=== PATIENT | female | born 1975 | race Caucasian/White ===

== ENCOUNTER 2017-04-04 16:27 | Emergency (ER) | payer BC, OTHER ==
[2017-04-04] MEDS ORDERED: KETOROLAC TROMETHAMINE 60 MG/2 ML SDV IM ONE (16:51)
[2017-04-04] MEDS ORDERED: KETOROLAC TROMETHAMINE INJ/PF 30 MG/1 ML SDV IV ONE (16:53)
--- NOTE | 2017-04-04 16:54 | ER Document Report ---
ED Neck/Back Problem - General Chief Complaint: Back Injury Stated Complaint: BACK PAIN Time Seen by Provider: 04/04/17 16:50 Mode of Arrival: Wheelchair TRAVEL OUTSIDE OF THE [place] IN LAST 30 DAYS: No - HPI Patient complains to provider of: Pain, Injury, Lower back Onset: Just prior to arrival - pt fell on muddy patch and injured her middle and lower back. Denies LOC, neck pain - Related Data Allergies/Adverse Reactions: metronidazole [From Flagyl] Allergy (Severe, Verified 04/04/17 16:51) ofloxacin [From Floxin] Allergy (Severe, Verified 04/04/17 16:51) glycopyrrolate [From Robinul] Allergy (Verified 04/04/17 16:51) VOMITING hydromorphone [From Dilaudid] Allergy (Verified 04/04/17 16:51) oxycodone HCl [From Percocet] Allergy (Verified 04/04/17 16:51) Penicillins Allergy (Verified 04/04/17 16:51) Past Medical History - Social History Smoking Status: Former Smoker Frequency of alcohol use: None Drug Abuse: None Family History: Other - Heart disease, but unsure what type. Patient has suicidal ideation: No Patient has homicidal ideation: No Renal/ Medical History: Denies: Hx Peritoneal Dialysis Past Surgical History: Reports: Hx Cholecystectomy - Immunizations Hx Diphtheria, Pertussis, Tetanus Vaccination: No Physical Exam - Vital signs Vitals: Temp Pulse Resp BP Pulse Ox 98.0 F 62 14 122/63 97 04/04/17 16:34 04/04/17 16:34 04/04/17 16:34 04/04/17 16:34 04/04/17 16:34 Course - Vital Signs Vital signs: Temp Pulse Resp BP Pulse Ox 98.0 F 62 14 122/63 97 04/04/17 16:34 04/04/17 16:34 04/04/17 16:34 04/04/17 16:34 04/04/17 16:34
--- NOTE | 2017-04-04 18:24 | RADIOLOGY REPORT (SQ) ---
EXAM DESCRIPTION: CT LUMBAR SPINE WITHOUT COMPLETED DATE/TIME: 04/04/2017 6:08 pm REASON FOR STUDY: fall COMPARISON: None. TECHNIQUE: Axial images acquired through the lumbar spine without intravenous contrast. Images revi ewed with lung, soft tissue and bone windows. Reconstructed coronal and sagittal MPR images reviewed . All images stored on PACS. All CT scanners at this facility use dose modulation, iterative reconstruction, and/or weight based d osing when appropriate to reduce radiation dose to as low as reasonably achievable (ALARA). [facility]: Dose Right [facility]: CareDose [facility]: Dose Right [facility]: Teradose 4D [facility]: PicBadges RADIATION DOSE: mGy. LIMITATIONS: None. FINDINGS: SEGMENTATION: Normal. No transitional anatomy. ALIGNMENT: Normal. VERTEBRAL BODIES: Wedge compression fracture of L 2, likely acute, with 10 to 20% loss of height. No significant encroachment of the spinal canal. DISCS: No significant protrusions. Study limited by lack of intrathecal contrast. PEDICLES, TRANSVERSE PROCESSES: No fractures. No dislocation. No acute findings. FACETS, POSTERIOR ELEMENTS: No fractures. No dislocation. No spinal stenosis. HARDWARE: None in the spine. VISUALIZED RIBS: No fractures. SOFT TISSUES: No significant or acute finding in adjacent soft tissues. OTHER: No other significant finding. IMPRESSION: WEDGE COMPRESSION FRACTURE OF L 2, LIKELY ACUTE, WITH 10 TO 20% LOSS OF HEIGHT. TECHNICAL DOCUMENTATION: JOB ID: [id number] Quality ID # [id number]: Final reports with documentation of one or more dose reduction techniques (e.g., Au tomated exposure control, adjustment of the mA and/or kV according to patient size, use of iterative reconstruction technique) 2010 [employer]- All Rights Reserved
--- NOTE | 2017-04-04 18:25 | RADIOLOGY REPORT (SQ) ---
EXAM DESCRIPTION: CT THORACIC SPINE WITHOUT COMPLETED DATE/TIME: 04/04/2017 6:08 pm REASON FOR STUDY: fall COMPARISON: None. TECHNIQUE: Axial images acquired through the thoracic spine without intravenous contrast. Images re viewed with lung, soft tissue and bone windows. Reconstructed coronal and sagittal MPR images review ed. Images stored on PACS. All CT scanners at this facility use dose modulation, iterative reconstruction, and/or weight based d osing when appropriate to reduce radiation dose to as low as reasonably achievable (ALARA). [facility]: Dose Right [facility]: CareDose [facility]: Dose Right [facility]: Teradose 4D [facility]: Smart Whim[employer] RADIATION DOSE: CT Rad equipment meets quality standard of care and radiation dose reduction techniq ues were employed. CTDIvol: 20.7 mGy. DLP: 727 mGy-cm. mGy. LIMITATIONS: None. FINDINGS: VISUALIZED LUNGS: No acute opacities. No pneumothorax. SOFT TISSUES: No soft tissue swelling. No masses. VERTEBRAL BODIES: No fractures. No dislocation. No acute findings. DISCS: No significant disc space narrowing. ALIGNMENT: Normal. TRANSVERSE PROCESSES, POSTERIOR ELEMENTS: No fractures. No dislocation. No acute findings. HARDWARE: None in the spine. VISUALIZED RIBS: No fractures. OTHER: No other significant finding. IMPRESSION: NORMAL CT OF THE THORACIC SPINE. TECHNICAL DOCUMENTATION: JOB ID: [id number] Quality ID # [id number]: Final reports with documentation of one or more dose reduction techniques (e.g., Au tomated exposure control, adjustment of the mA and/or kV according to patient size, use of iterative reconstruction technique) 2010 [employer]- All Rights Reserved
[2017-04-04 18:54] LABS: APPEARANCE,URINE CLEAR; BILIRUBIN,URINE NEGATIVE (NEGATIVE); COLOR,URINE YELLOW; GLUCOSE, URINE NEGATIVE (NEGATIVE); KETONES,URINE NEGATIVE (NEGATIVE); LEUKOCYTE ESTERASE,URINE NEGATIVE (NEGATIVE); NITRITE,URINE NEGATIVE (NEGATIVE); PROTEIN,URINE NEGATIVE (NEGATIVE); URINE SPECIFIC GRAVITY 1.012; UROBILINOGEN,URINE NEGATIVE mg/dL (<2.0)
[2017-04-04] MEDS ORDERED: LIDOCAINE 5% (700 MG) TRANSDERMAL ADH..PATCH TP ONE (19:14)
[2017-04-04] MEDS ORDERED: FENTANYL CITRATE INJ/PF 100 MCG/2 ML AMPUL IV PRN (19:14)
--- NOTE | 2017-04-04 19:16 | ER Document Report ---
ED General - General Chief Complaint: Back Injury Stated Complaint: BACK PAIN Time Seen by Provider: 04/04/17 16:50 Mode of Arrival: Wheelchair Notes: Patient is a 42-year-old female with a past medical history of ankylosing spondylitis, chronic back pain, multiple prior back injuries who presents after a slip and fall on mud landing onto her low back. Patient states that since that time she has had a severe, constant throbbing pain diffusely to her thoracic and lumbar spine. She states any form of movement worsens the pain. Nothing improves the pain. She states this feels similar to when she is severely injured her back in the past. She notes that she has a significant amount of pain in her right lower extremity as well as associated paresthesias. She states that she feels like her right lower externally is weaker than the left but is uncertain whether or not this is due to the amount of pain that she is experiencing toward the right low back. She has not seen her primary doctor regarding today's concerns. She denies any bowel or bladder incontinence. No urinary retention. She denies any head or neck trauma today. TRAVEL OUTSIDE OF THE [place] IN LAST 30 DAYS: No - Related Data Allergies/Adverse Reactions: metronidazole [From Flagyl] Allergy (Severe, Verified 04/04/17 16:51) ofloxacin [From Floxin] Allergy (Severe, Verified 04/04/17 16:51) glycopyrrolate [From Robinul] Allergy (Verified 04/04/17 16:51) VOMITING hydromorphone [From Dilaudid] Allergy (Verified 04/04/17 16:51) oxycodone HCl [From Percocet] Allergy (Verified 04/04/17 16:51) Penicillins Allergy (Verified 04/04/17 16:51) Past Medical History - General Information source: Patient - Social History Smoking Status: Former Smoker Frequency of alcohol use: None Drug Abuse: None Lives with: Spouse/Significant other Family History: Reviewed & Not Pertinent, Other - Heart disease, but unsure what type. Patient has suicidal ideation: No Patient has homicidal ideation: No Renal/ Medical History: Denies: Hx Peritoneal Dialysis Past Surgical History: Reports: Hx Cholecystectomy - Immunizations Hx Diphtheria, Pertussis, Tetanus Vaccination: No Review of Systems - Review of Systems Notes: Constitutional: Negative for fever. Eyes: Negative for visual changes. ENT: Negative for facial injury Cardiovascular: Negative for chest injury. Respiratory: Negative for shortness of breath. Gastrointestinal: Negative for abdominal injury. Genitourinary: Negative for genital injury Musculoskeletal: Positive for low back injury Skin: Negative for laceration/abrasions. Neurological: Negative for head injury. Physical Exam - Vital signs Vitals: Temp Pulse Resp BP Pulse Ox 98.0 F 62 14 122/63 97 04/04/17 16:34 04/04/17 16:34 04/04/17 16:34 04/04/17 16:34 04/04/17 16:34 Interpretation: Normal Notes: PHYSICAL EXAMINATION: GENERAL: Well-appearing, well-nourished and in no acute distress. HEAD: Atraumatic, normocephalic. EYES: Pupils equal round and reactive to light, extraocular movements intact, sclera anicteric, conjunctiva are normal. ENT: nares patent, oropharynx clear without exudates. Moist mucous membranes. NECK: Normal range of motion, supple without lymphadenopathy LUNGS: Breath sounds clear to auscultation bilaterally and equal. No wheezes rales or rhonchi. HEART: Regular rate and rhythm without murmurs ABDOMEN: Soft, nontender, normoactive bowel sounds. No guarding, no rebound. No masses appreciated. Back: Diffuse thoracic and lumbar spinal tenderness, most focally tender to the mid lumbar spine. No step-offs or deformities. EXTREMITIES: Normal range of motion, no pitting or edema. No cyanosis. NEUROLOGICAL: 5 out of 5 strength both distally and proximally in the left lower extremity, 3 out of 5 in the right lower extremity although this appears to be pain mediated. 2+ patellar reflexes bilaterally. No clonus. Sensation grossly intact in the bilateral lower extremities. Patient is able to ambulate with obvious pain and shuffling gait PSYCH: Moderately anxious SKIN: Warm, Dry, normal turgor, no rashes or lesions noted. Course - Re-evaluation Re-evalutation: 04/04/17 19:15 Patient presents after a mechanical fall landing directly onto her low back, found to have an acute wedge compression fracture L2. Unfortunate on examination patient has focal weakness both distally and proximally the right lower extremity with 3 out of 5 strength versus 5 out of 5 on the left. She does have 2+ equal and symmetric patellar and ankle reflexes bilaterally. She is able to ambulate but has an obviously antalgic gait and has a shuffling walk. No bowel or bladder incontinence or urinary retention. Very low clinical suspicion for acute cord compression as she only has unilateral symptoms but given the degree of weakness, will proceed with an MRI to further clarify. Pain control provided. No additional injuries on exam or history. 04/04/17 21:33 MRI is very reassuring, x-ray shows that the L2 compression deformity is chronic not acute. Patient's pain is much improved now and her neurologic exam likewise has improved no longer significant weakness on the right side. At this time will discharge with return precautions and follow-up recommendations. Verbal discharge instructions given a the bedside and opportunity for questions given. Medication warnings reviewed. Patient is in agreement with this plan and has verbalized understanding of return precautions and the need for primary care follow-up in the next 24-72 hours. - Vital Signs Vital signs: Temp Pulse Resp BP Pulse Ox 97.7 F 55 L 16 117/68 97 04/04/17 22:37 04/04/17 22:37 04/04/17 22:37 04/04/17 22:37 04/04/17 22:37 - Laboratory Laboratory results interpreted by me: 04/04/17 18:38 Urine Blood MODERATE H - Diagnostic Test Radiology reviewed: Reports reviewed Discharge - Discharge Clinical Impression: Right leg weakness Ankylosing spondylitis Qualifiers: Ankylosing spondylitis location: unspecified site of spine Qualified Code(s): M45.9 - Ankylosing spondylitis of unspecified sites in spine Acute low back pain Qualifiers: Back pain laterality: bilateral Sciatica presence: with sciatica Sciatica laterality: sciatica of right side Qualified Code(s): M54.41 - Lumbago with sciatica, right side Fall Qualifiers: Encounter type: initial encounter Qualified Code(s): W19.XXXA - Unspecified fall, initial encounter Condition: Good Disposition: HOME, SELF-CARE Additional Instructions: You have been seen in the Emergency Department (ED) today for back pain. The MRI shows that the compression fracture of your L2 vertebra is chronic and not from today. There is no evidence of injury or compression to any of your nerves or your spinal cord. Please take the naproxen that has been prescribed as directed. You should also purchase a local lidocaine cream such as "aspercreme with lidocaine" and use per bottle instructions to the affected area. Apply heat to the area as often as you are able. Continue to keep active and avoid prolonged periods of bed rest. Please follow up with your doctor as soon as possible regarding today's ED visit and your back pain. Return to the ED for worsening back pain, fever, weakness or numbness of either leg, or if you develop either (1) an inability to urinate or have bowel movements, or (2) loss of your ability to control your bathroom functions (if you start having "accidents"), or if you develop other new symptoms that concern you.concern you. Prescriptions: Morphine Sulfate [Morphine Ir 15 mg Tablet] 15 mg PO Q4HP PRN #12 tablet PRN Reason: Naproxen 500 mg PO BID #60 tablet Referrals: LOLA LARKIN I, [Primary Care Provider] - Follow up in 3-5 days
--- NOTE | 2017-04-04 21:19 | RADIOLOGY REPORT (SQ) ---
EXAM DESCRIPTION: MRI LUMBAR SPINE WITHOUT COMPLETED DATE/TIME: 04/04/2017 8:35 pm REASON FOR STUDY: rle weakness, acute fx COMPARISON: CT lumbar spine 04/04/2017 TECHNIQUE: Sagittal and Axial imaging includes T1, T2, STIR and gradient echo sequences. Coronal T2/ HASTE imaging. LIMITATIONS: None. FINDINGS: VISUALIZED UPPER ABDOMEN: Limited evaluation. No acute or suspicious findings suggested. SEGMENTATION: No transitional anatomy. The lowest well-developed disc space is labeled L5-S1. ALIGNMENT: Anatomic. VERTEBRAE: There is about 25% loss of height of the L2 vertebral body, chronic in appearance. No mar row edema to suggest that this is an acute finding. BONE MARROW: Normal. No marrow replacement or reactive changes. DISC SIGNAL: Normal. No significant abnormal signal or loss of height. POSTERIOR ELEMENTS: Generally intact. No pars defect evident. HARDWARE: None in the spine. CORD AND CONUS: Normal in size and signal intensity. Conus at the L1-2 level. SOFT TISSUES: No aortic aneurysm seen. No bulky retroperitoneal adenopathy or mass. No paraspinal mas s or fluid. T11-12: At the upper edge of the field of view. Mild diffuse posterior disc bulge and bony spurring is present causing borderline central canal narrowing. Mild bilateral foraminal narrowing from face t and ligament hypertrophy. T12-L1: No central or foraminal encroachment. L1-L2: Minimal posterior disc bulging, mild bilateral facet and ligament hypertrophy. Borderline jason tral canal narrowing. No foraminal stenosis. Next L2-L3: No significant spinal stenosis or exit foraminal stenosis. Mild bilateral facet hypertrophy. L3-L4: No significant spinal stenosis or exit foraminal stenosis. Mild bilateral facet hypertrophy. L4-L5: No significant spinal stenosis or exit foraminal stenosis. Mild bilateral facet hypertrophy. L5-S1: No significant spinal stenosis or exit foraminal stenosis. Mild bilateral facet hypertrophy. SACRUM: Visualized upper sacrum intact. OTHER: No other significant findings. IMPRESSION: Chronic L2 compression deformity TECHNICAL DOCUMENTATION: JOB ID: [id number] [employer]- All Rights Reserved
[2017-04-04 22:53] VITALS: BP 117/68
== END 2017-04-04 22:53 | disposition home or self-care (01) ==
LOC: ER 16:27
DX: M54.41 Lumbago with sciatica, right side (principal); R53.1 Weakness; M45.9 Ankylosing spondylitis of unspecified sites in spine; M54.6 Pain in thoracic spine; M54.9 Dorsalgia, unspecified; G89.29 Other chronic pain; M79.604 Pain in right leg; R20.0 Anesthesia of skin; W01.0XXA Fall on same level from slipping, tripping and stumbling without subsequent striking against object, initial encounter; Z87.891 Personal history of nicotine dependence
CPT/HCPCS: 99284; 96374; 96375; 81025; 81001; 72148; 72128; 72131; J3010; J1885